=== PATIENT | male | born 1940 | race Hispanic/Latino ===

== ENCOUNTER 2019-04-23 05:30 | Day surgery (SDC) | payer OTHER, MEDICARE ==
[~2019-04-23] VITALS: Ht 172.7 cm; Wt 81.6 kg
[~2019-04-23 05:30] MED LIST: ALIS150T PO; AMLO10TA7 PO; CAPT50TA3 PO; CLOP75TA32 PO; FERR-82 PO; GLIM4TAB5 PO; OMEP40CA13 PO; PRAV40TA3 PO; SITA1TAB2 PO
[2019-04-23] MEDS ORDERED: SODIUM CHLORIDE 0.9% 1000ML 1,000 ML IV ONE (05:46)
[2019-04-23] MEDS ORDERED: PROPOFOL 10 MG/ML 20ML VIAL IV ONE (08:43)
[2019-04-23 09:03] VITALS: BP 106/45
[2019-04-23 09:09] VITALS: BP 110/49
[2019-04-23 09:15] VITALS: BP 113/48
[2019-04-23 09:21] VITALS: BP 109/49
[2019-04-23 09:23] VITALS: BP 138/64
== END 2019-04-23 09:35 | disposition home or self-care (01) ==
LOC: ENDO 05:30 → DAH 05:30 → ENDO 09:35
PROVIDERS: ATTEND Internal Medicine
DX: K63.5 Polyp of colon (principal); K62.1 Rectal polyp; K57.30 Diverticulosis of large intestine without perforation or abscess without bleeding; K64.1 Second degree hemorrhoids; K21.0 Gastro-esophageal reflux disease with esophagitis; E11.9 Type 2 diabetes mellitus without complications; E78.5 Hyperlipidemia, unspecified; I10 Essential (primary) hypertension; Z79.899 Other long term (current) drug therapy; Z86.73 Personal history of transient ischemic attack (TIA), and cerebral infarction without residual deficits; Z83.3 Family history of diabetes mellitus; Z82.5 Family history of asthma and other chronic lower respiratory diseases; Z79.84 Long term (current) use of oral hypoglycemic drugs
CPT/HCPCS: 45380; 82948 ×2; 88305; A4215; A4221; A4222; A4223; A4606; A4615; A4663; J2704; J7030